=== PATIENT | male | born 1995 | race Caucasian/White ===

== ENCOUNTER 2023-12-16 11:48 | Emergency (ER) | payer BC ==
[2023-12-16] MEDS: diphenhydrAMINE 50 MG/ML SDV IVPUSH ONE (12:00)
[2023-12-16] MEDS: methylPREDNISolone Sodium Succinate 125 MG/2 ML SDV IVPUSH ONE (12:02)
== END 2023-12-16 12:57 | disposition home or self-care (01) ==
LOC: FB.ED 11:48
DX: T63.441A Toxic effect of venom of bees, accidental (unintentional), initial encounter (principal)
CPT/HCPCS: 96374; 96375; 99282; J1200; J2919

== ENCOUNTER 2025-01-25 06:11 | Day surgery (SDC) | payer BC ==
[2025-01-25] MEDS ORDERED: Propofol 200 MG/20 ML SDV IV ONE (06:12)
[2025-01-25] MEDS ORDERED: Sodium Chloride 0.9% 10 ML Syringe FLUSH PRN (06:15)
[2025-01-25] MEDS: Lactated Ringers 1,000 ML IV SCH (07:04)
[2025-01-26 20:23] LABS: LACTOFERRIN,FECAL BY ELISA Negative (Negative)
[2025-01-28 02:38] LABS: ADENOVIRUS 40/41 PCR Not Detected; ASTROVIRUS PCR Not Detected; CRYPTOSPORIDIUM PCR Not Detected; CYCLOSPORA CAYETANENSIS PCR Not Detected; ENTAMOEBA HISTOLYTICA PCR Not Detected; ENTEROAGGREGATIVE E. COLI PCR Not Detected; ENTEROPATHOGENIC E. COLI PCR Not Detected; ENTEROTOXIGENIC E. COLI PCR Not Detected; GIARDIA LAMBLIA PCR Not Detected; NOROVIRUS GI/GII PCR Not Detected; PLESIOMONAS SHIGELLOIDES PCR Not Detected; ROTAVIRUS A PCR Not Detected; SALMONELLA PCR Not Detected; SAPOVIRUS PCR Not Detected; SHIG/ENTEROINVASIVE E COLI PCR Not Detected; SHIGA TOXIN-PRODUC E. COLI PCR Not Detected; VIBRIO CHOLERAE PCR Not Detected; VIBRIO PCR Not Detected; YERSINIA ENTEROCOLITICA PCR Not Detected
== END 2025-01-25 08:35 | disposition home or self-care (01) ==
LOC: EDSEX → FB.SDS 06:11 → MERGE 07:30 → FB.SDS 08:35
PROVIDERS: ATTEND Surgery
DX: K52.9 Noninfective gastroenteritis and colitis, unspecified (principal); K62.5 Hemorrhage of anus and rectum; K63.3 Ulcer of intestine; K62.89 Other specified diseases of anus and rectum; Z79.899 Other long term (current) drug therapy
CPT/HCPCS: 00811; 45380; 83630; 87507; 88305; A9270; J2704; J7120